=== PATIENT | male | born 1950 | race Caucasian/White ===

== ENCOUNTER 2019-08-08 16:33 | Inpatient (IN) | payer MEDICARE, MEDICAID ==
[~2019-08-08] VITALS: Ht 172.7 cm; Wt 84.9 kg
[2019-08-08] MEDS ORDERED: HALOPERIDOL LACTATE 5MG/ML VIAL IM ONE ×2 (18:15→20:45)
[2019-08-08 18:43] LABS: BASOPHILS % 0.2 % (0.0-2.0); EOSINOPHILS % 0.6 % (0.0-5.0); HEMATOCRIT. 38.8 % (42.0-52.0); HEMOGLOBIN. 13.5 g/dL (14.0-18.0); LYMPHOCYTES % 11.3 % (20.0-50.0); MEAN CORPUSCULAR HEMOGLOBIN 32.1 pg (28.0-32.0); MEAN CORPUSCULAR VOLUME 92.1 fL (80.0-94.0); MEAN PLATELET VOLUME 8.9 fl (7.4-10.4); MONOCYTES % 5.9 % (2.0-8.0); PLATELET 173 x1000/uL (130-400); RED BLOOD CELL COUNT 4.21 mill/uL (4.7-6.1); RED CELL DISTRIBUTION WIDTH 12.7 % (11.6-14.6)
[2019-08-08 18:49] LABS: CHLORIDE 98 mEq/L (98-107)
[2019-08-08 18:53] LABS: ETHANOL BLOOD < 10 mg/dL
[2019-08-08] MEDS ORDERED: SODIUM CHLORIDE 0.9% 1000ML BAG (SEPSIS BOLUS) IV ONE (19:00)
[2019-08-08] MEDS ORDERED: CEFTRIAXONE 1 G PREMIX 50 ML IV ONE (19:00)
[2019-08-08 19:13] LABS: CLARITY URINE CLEAR (CLEAR); COLOR URINE YELLOW (YELLOW); KETONES URINE NEGATIVE (NEGATIVE); LEUKOCYTE ESTERASE URINE NEGATIVE (NEGATIVE); NITRITE URINE NEGATIVE (NEGATIVE); OCCULT BLOOD URINE NEGATIVE (NEGATIVE); PH URINE 6.5 (4.5-8.0); PROTEIN URINE NEGATIVE (NEGATIVE); SPECIFIC GRAVITY URINE 1.015 (1.005-1.030)
[2019-08-08 19:18] LABS: *COCAINE SCREEN URINE NEGATIVE (NEGATIVE)
[2019-08-08 19:19] LABS: *AMPHETAMINES SCREEN URINE NEGATIVE (NEGATIVE); *BARBITURATES SCREEN URINE NEGATIVE (NEGATIVE); *BENZODIAZEPINES SCREEN URINE NEGATIVE (NEGATIVE); CANNABINOID URINE SCREEN NEGATIVE (NEGATIVE); METHADONE URINE SCREEN NEGATIVE (NEGATIVE); OPIATES URINE SCREEN NEGATIVE (NEGATIVE); PHENCYCLIDINE URINE SCREEN NEGATIVE (NEGATIVE)
[2019-08-08 19:24] LABS: INR 1.1; PROTHROMBIN TIME 11.6 sec (9.6-11.0)
[2019-08-08] MEDS ORDERED: DIPHENHYDRAMINE 50MG/ML VIAL IV PRN (21:30)
[2019-08-08] MEDS ORDERED: MAGNESIUM/ALUMINUM HYDROXIDE/SIMETHICONE 30ML UDC PO PRN (21:30)
[2019-08-08] MEDS ORDERED: IPRATROPIUM/ALBUTEROL 0.5-3(2.5)MG/3ML NEB HHN PRN (21:30)
[2019-08-08] MEDS ORDERED: HYDRALAZINE 20MG/ML VIAL IV PRN (21:30)
[2019-08-08] MEDS ORDERED: ONDANSETRON HCL 4MG/2ML INJ IV PRN (21:30)
[2019-08-08] MEDS ORDERED: GUAIFENESIN 200MG/10ML SUGAR FREE UDC PO PRN (21:30)
[2019-08-08] MEDS ORDERED: ACETAMINOPHEN 325MG TABLET PO PRN (21:30)
[2019-08-08] MEDS ORDERED: DOCUSATE SODIUM 100MG CAPSULE PO PRN (21:30)
[2019-08-08] MEDS ORDERED: CLONIDINE 0.1MG TABLET PO PRN (21:30)
[2019-08-08] MEDS ORDERED: HYDROCODONE/ACETAMINOPHEN 10/325MG TABLET PO PRN (21:30)
[2019-08-08] MEDS ORDERED: MORPHINE SULFATE 2 MG/ML CPJ (NOT FOR IM USE) IV PRN (21:30)
[2019-08-08] MEDS ORDERED: LEVOFLOXACIN 500MG PREMIX 100 ML IV NR (22:45)
[2019-08-09 03:06] VITALS: BP 123/83
[2019-08-09] MEDS: SODIUM CHLORIDE 0.9% INJ 3ML FLUSH IVF SCH ×3 (05:28→22:00)
[2019-08-09 05:44] LABS: CHLORIDE 103 mEq/L (98-107)
[2019-08-09 05:58] LABS: BASOPHILS % 0.1 % (0.0-2.0); EOSINOPHILS % 1.8 % (0.0-5.0); HEMATOCRIT. 37.5 % (42.0-52.0); HEMOGLOBIN. 13.1 g/dL (14.0-18.0); LYMPHOCYTES % 12.9 % (20.0-50.0); MEAN CORPUSCULAR HEMOGLOBIN 32.5 pg (28.0-32.0); MEAN CORPUSCULAR VOLUME 92.9 fL (80.0-94.0); MEAN PLATELET VOLUME 9.1 fl (7.4-10.4); MONOCYTES % 7.2 % (2.0-8.0); PLATELET 142 x1000/uL (130-400); RED BLOOD CELL COUNT 4.04 mill/uL (4.7-6.1)
[2019-08-09] MEDS ORDERED: ENOXAPARIN 30MG/0.3ML SYR SUBCUT SCH (09:00)
[2019-08-09] MEDS: HALOPERIDOL LACTATE 5MG/ML VIAL IM PRN ×2 (12:53→20:22)
[2019-08-09] MEDS ORDERED: LEVOFLOXACIN 500MG PREMIX 100 ML IV SCH (21:00)
[2019-08-09] MEDS: LEVOFLOXACIN 500MG PREMIX 100 ML IV SCH (22:03)
[2019-08-10 04:00] VITALS: BP 108/89
[2019-08-10] MEDS: SODIUM CHLORIDE 0.9% INJ 3ML FLUSH IVF SCH ×3 (06:00→22:10)
[2019-08-10 08:00] VITALS: BP 128/95
[2019-08-10] MEDS: ENOXAPARIN 40MG/0.4ML SYR SUBCUT SCH (10:06)
[2019-08-10] MEDS: HALOPERIDOL LACTATE 5MG/ML VIAL IM PRN ×2 (10:51→22:10)
[2019-08-10 12:00] VITALS: BP 159/94
[2019-08-10 16:00] VITALS: BP 150/93
[2019-08-10] MEDS: LORAZEPAM 2MG/ML CPJ IV PRN (23:22)
[2019-08-10] MEDS: LEVOFLOXACIN 500MG PREMIX 100 ML IV SCH (23:50)
[2019-08-11 00:30] VITALS: BP 114/90
[2019-08-11 04:00] VITALS: BP 132/97
[2019-08-11] MEDS: HALOPERIDOL LACTATE 5MG/ML VIAL IM PRN ×2 (06:07→16:25)
[2019-08-11] MEDS: SODIUM CHLORIDE 0.9% INJ 3ML FLUSH IVF SCH ×3 (06:19→22:00)
[2019-08-11] MEDS: LORAZEPAM 2MG/ML CPJ IV PRN ×3 (07:44→18:33)
[2019-08-11 08:00] VITALS: BP 121/82
[2019-08-11] MEDS: ENOXAPARIN 40MG/0.4ML SYR SUBCUT SCH (08:31)
[2019-08-11 12:00] VITALS: BP 153/91
[2019-08-11 16:00] VITALS: BP 132/97
[2019-08-11 20:00] VITALS: BP 141/86
[2019-08-11] MEDS: LEVOFLOXACIN 500MG PREMIX 100 ML IV SCH (23:58)
[2019-08-12] VITALS: BP 119/82
[2019-08-12 04:00] VITALS: BP 111/76
[2019-08-12] MEDS: SODIUM CHLORIDE 0.9% INJ 3ML FLUSH IVF SCH ×3 (06:22→22:00)
[2019-08-12 08:00] VITALS: BP 126/83
[2019-08-12] MEDS: ENOXAPARIN 40MG/0.4ML SYR SUBCUT SCH (09:59)
[2019-08-12 12:00] VITALS: BP 135/80
[2019-08-12 16:00] VITALS: BP 149/75
[2019-08-12] MEDS ORDERED: LEVOFLOXACIN 500MG TABLET PO SCH (21:00)
[2019-08-12] MEDS: HALOPERIDOL LACTATE 5MG/ML VIAL IM PRN (22:13)
[2019-08-12] MEDS: DIVALPROEX SODIUM 250MG DR TABLET PO SCH (22:14)
[2019-08-12] MEDS: OLANZAPINE 5MG TABLET PO SCH (22:15)
[2019-08-13] VITALS: BP 133/81
[2019-08-13 04:00] VITALS: BP 130/82
[2019-08-13] MEDS: DIVALPROEX SODIUM 250MG DR TABLET PO SCH ×3 (06:52→21:00)
[2019-08-13] MEDS: SODIUM CHLORIDE 0.9% INJ 3ML FLUSH IVF SCH ×3 (06:53→21:00)
[2019-08-13 08:00] VITALS: BP 123/76
[2019-08-13] MEDS: OLANZAPINE 5MG TABLET PO SCH ×2 (09:20→20:20)
[2019-08-13] MEDS: ENOXAPARIN 40MG/0.4ML SYR SUBCUT SCH (09:21)
[2019-08-13 12:00] VITALS: BP 146/85
[2019-08-13] MEDS: HALOPERIDOL LACTATE 5MG/ML VIAL IM PRN ×2 (14:39→20:40)
[2019-08-13 20:00] VITALS: BP 153/81
[2019-08-13] MEDS: LORAZEPAM 2MG/ML CPJ IV PRN (20:02)
[2019-08-14] VITALS: BP 113/79
[2019-08-14] MEDS: LORAZEPAM 2MG/ML CPJ IV PRN (00:03)
[2019-08-14] MEDS: HALOPERIDOL LACTATE 5MG/ML VIAL IM PRN (02:40)
[2019-08-14 04:00] VITALS: BP 153/87
[2019-08-14] MEDS: DIVALPROEX SODIUM 250MG DR TABLET PO SCH ×3 (06:00→21:28)
[2019-08-14] MEDS: SODIUM CHLORIDE 0.9% INJ 3ML FLUSH IVF SCH ×3 (06:00→22:00)
[2019-08-14] MEDS: ENOXAPARIN 40MG/0.4ML SYR SUBCUT SCH (09:00)
[2019-08-14] MEDS: OLANZAPINE 5MG TABLET PO SCH ×2 (09:43→20:57)
[2019-08-14 12:00] VITALS: BP 123/85
[2019-08-14 20:00] VITALS: BP 129/87
[2019-08-15] VITALS: BP 129/79
[2019-08-15 04:00] VITALS: BP 126/75
[2019-08-15] MEDS: SODIUM CHLORIDE 0.9% INJ 3ML FLUSH IVF SCH ×2 (06:00→14:00)
[2019-08-15] MEDS: DIVALPROEX SODIUM 250MG DR TABLET PO SCH ×2 (06:48→14:56)
[2019-08-15 08:00] VITALS: BP 140/84
[2019-08-15] MEDS: OLANZAPINE 5MG TABLET PO SCH (08:20)
[2019-08-15] MEDS: ENOXAPARIN 40MG/0.4ML SYR SUBCUT SCH (08:35)
[2019-08-15 12:00] VITALS: BP 109/71
[2019-08-15 14:18] VITALS: BP 109/71
[2019-08-15 16:00] VITALS: BP 125/78
== END 2019-08-15 17:55 | disposition home or self-care (01) | DRG 71 ==
LOC: ER 16:33 → 7EST 20:02 → ENRESERV 08-09 02:22 → 7EST 08-09 12:50 → 5WST 08-10 22:35
PROVIDERS: ADMIT Internal Medicine; ATTEND Internal Medicine
DX: G93.41 Metabolic encephalopathy (principal); R65.10 Systemic inflammatory response syndrome (SIRS) of non-infectious origin without acute organ dysfunction; E87.1 Hypo-osmolality and hyponatremia; D68.9 Coagulation defect, unspecified; F02.81 Dementia in other diseases classified elsewhere, unspecified severity, with behavioral disturbance; F20.9 Schizophrenia, unspecified; D72.829 Elevated white blood cell count, unspecified; F99 Mental disorder, not otherwise specified; D72.810 Lymphocytopenia; E86.1 Hypovolemia; Z20.828 Contact with and (suspected) exposure to other viral communicable diseases; G30.9 Alzheimer's disease, unspecified; Z78.1 Physical restraint status; Z91.83 Wandering in diseases classified elsewhere
CPT/HCPCS: 36415; 71045; 80053; 80305; 80320; 81003; 83605; 83880; 84145; 84484; 85025; 87635; 87804; 93005; 99285; J0696; J1200; J1630; J1650; J1956; J2060; J2270; J7030; G0480